=== PATIENT | female | born 1950 | race Caucasian/White ===

== ENCOUNTER 2017-02-23 07:45 | Day surgery (SDC) | payer MEDICARE, BC ==
[2017-02-23] VITALS (12 sets, daily range): BP systolic 85–164; BP diastolic 52–84; PULSE 54–68; RESP 14–21; TEMP 97.1–98.2; O2SAT 95–100; Ht 162.6 cm; Wt 69.9 kg
[~2017-02-23] VITALS: Ht 162.6 cm; Wt 69.9 kg
[~2017-02-23 07:45] MED LIST: ACET-2321 PO; AMLO5TAB2 PO; ASPI-1115 PO; ATOR10TA64 PO; ATOR40TA64 PO; CYCL5TAB PO; GLUC-195 PO; HYDR200T4 PO; LACT1CAP80 PO; LIDOCAINE 1% (10mg/ml) 2ml SDV INJ ONE; LR 1,000 ML IV SCH; MULT-37 PO; NAPR500T3 PO; OMEG1CAP79 PO; OXYC-544 PO; TRAM50TA4 PO; UBID100C10 PO
--- OUTSIDE RECORDS SUMMARY | 2017-02-23 07:49 | XMS REPORT | CCD ---
Author Author BRI GALAN Organization Unknown Address [address] [facility] [place], [place] [id number] Phone 0 Care Team Providers Care Custom Bike Builder Name Role Phone Bhargav RAMÍREZ Attending Physician 0 Vital Signs Unknown or Not Available. Allergies Allergy Code Allergy Type Reaction Status No Known Drug Allergies 0 No known drug allergies Active Procedures Unknown or Not Available. History of Immunizations Unknown or Not Available. Problems Unknown or Not Available. Results Unknown or Not Available. Active Medications Unknown or Not Available. Medications Administered During Visit Unknown or Not Available. Encounters Encounter Diagnosis Diagnosis Code Start Date JOINT PAIN-MULT JTS 13016 05/30/2015 Social History Smoking Status Code Start Date End Date Former smoker [id number] Patient Decision Aids Unknown or Not Available. Discharge Instructions You were admitted to [facility] on 05/30/2015 with a principal diagnosis of JOINT PAIN-MULT JTS. You were discharged from [facility] on 05/30/2015. Should you have any questions prior to discharge, please contact a member of your healthcare team. If you have left the hospital and have any questions, please contact your primary care physician. Chief Complaint and Reason For Visit Chief Complaint Date of Onset RHEUMATOLOGY Function Status Unknown or Not Available. Plan of Care Unknown or Not Available. Referral/Transition of Care Unknown or Not Available.
--- OUTSIDE RECORDS SUMMARY | 2017-02-23 07:49 | XMS REPORT | CCD ---
Author Author BRI GALAN Organization Unknown Address [address] [place], [place] [address] Phone 0 Care Team Providers Care Bacteriologist Soil Name Role Phone HA BLISS Attending Physician 0 JENNIFER PATEL Physician [phone] Vital Signs Unknown or Not Available. Allergies Allergy Code Allergy Type Reaction Status No Known Drug Allergies 0 No known drug allergies Active Procedures Procedure Code Procedure Type Date CHEST [id number] 02/14/2015 History of Immunizations Unknown or Not Available. Problems Unknown or Not Available. Results BASIC METABOLIC - Collect Date/Time: 02/14/2015 09:30 Test Name Code Test Result Test Units Test Ref Range GLUCOSE 82 mg/dL L=70 H=110 BUN 22 mg/dL L=7 H=18 CREATININE 1.10 mg/ dL L=0.60 H=1.30 AGE 64 YEARS GFR 53.0 SODIUM 143 mmol/L L=136 H=145 POTASSIUM 4.1 mmol/ L L=3.5 H=5.1 CHLORIDE 104 mmol/L L=98 H=107 CO2 32 mmol/L L=21 H=32 CALCIUM 9.0 mg/dL L=8.5 H=10.1 CBC W/ DIFF - Collect Date/Time: 02/14/2015 09:30 Test Name Code Test Result Test Units Test Ref Range WBC 4.3 x10^3 L=4.8 H=10.8 RBC 4.65 x10^6 L=4.20 H=5.40 HEMOGLOBIN 14.3 g/ dL L=12.0 H=16.0 HEMATOCRIT 41.7 % L=37.0 H=47.0 MCV 90 fL L=80 H=100 MCH 30.6 pg L=27.0 H=33.0 MCHC 34.2 g/dL L=33.0 H=37.0 RDW 13.1 % L=11.5 H=14.5 PLATELETS 291 x10^3 L=150 H=450 MPV 7.3 fL L=7.8 H=11.0 NEUTROPHILS 59.6 % L=40.0 H=80.0 LYMPHOCYTES 31.2 % L=20.0 H=45.0 MONOCYTES 6.9 % L=0.0 H=10.0 EOSINOPHILS 1.1 % L=0.0 H=5.0 BASOPHILS 1.2 % L=0.0 H=2.0 REFLEX MAN DIFF NO N /A PT/INR - Collect Date/Time: 02/14/2015 09:30 Test Name Code Test Result Test Units Test Ref Range PT 10.4 Secs L=9.6 H=11.2 INR 1.00 L=0.00 H=4.00 Active Medications Unknown or Not Available. Medications Administered During Visit Unknown or Not Available. Encounters Unknown or Not Available. Social History Smoking Status Code Start Date End Date Former smoker [id number] Patient Decision Aids Unknown or Not Available. Discharge Instructions You were admitted to [facility] on 02/14/2015. You were discharged from [facility] on 02/14/2015. Should you have any questions prior to discharge, please contact a member of your healthcare team. If you have left the hospital and have any questions, please contact your primary care physician. Chief Complaint and Reason For Visit Chief Complaint Date of Onset PRE OP LAB XR CHEST EKG Function Status Unknown or Not Available. Plan of Care Unknown or Not Available. Referral/Transition of Care Unknown or Not Available.
--- OUTSIDE RECORDS SUMMARY | 2017-02-23 07:49 | XMS REPORT | CCD ---
Author Author BRI GALAN Organization Unknown Address [address] [facility] [place], [place] [address] Phone 0 Care Team Providers Care Five Roll Refiner Batch Mixer Name Role Phone CHARLES ABARCA W Attending Physician [phone] Vital Signs Unknown or Not Available. Allergies Allergy Code Allergy Type Reaction Status No Known Drug Allergies 0 No known drug allergies Active Procedures Unknown or Not Available. History of Immunizations Unknown or Not Available. Problems Unknown or Not Available. Results LIPID PANEL Test Name Code Test Result Test Units Test Date/Time CHOLESTEROL 134.0000 mg/dL 03/26/2014 14:05 TRIGLYCERIDES 137.0000 mg/dL 03/26/2014 14:05 HDL 56.0000 mg/dL 03/26/2014 14:05 LDL, CALC 51.0000 mg /dL 03/26/2014 14:05 VLDL 27.0000 mg/dL 03/26/2014 14:05 CHOL/HDL RISK 2.4000 RATIO 03/26/2014 14:05 PT FASTING: NO N/A 03/26/2014 14:05 Medications Unknown or Not Available. Medications Administered Unknown or Not Available. Encounters Unknown or Not Available. Social History Smoking Status Code Start Date End Date Former smoker [id number] Patient Decision Aids Unknown or Not Available. Discharge Instructions You were admitted to [facility] on 03/26/2014. You were discharged from [facility] on 03/26/2014. Should you have any questions prior to discharge, please contact a member of your healthcare team. If you have left the hospital and have any questions, please contact your primary care physician. Chief Complaint and Reason For Visit Chief Complaint Date of Onset LAB Function Status Unknown or Not Available. Plan of Care Unknown or Not Available. Referral/Transition of Care Unknown or Not Available.
--- OUTSIDE RECORDS SUMMARY | 2017-02-23 07:49 | XMS REPORT | Continuity of Care Document ---
Demographics Preferred Language Unknown Marital Status Unknown Spiritism Affiliation Unknown Race Unknown Ethnic Group Unknown Author Author [facility] Organization [facility] Address Unknown Phone Unavailable Allergies Medications Problems Procedures Results Encounters ACCT No. Visit Date/Time Discharge Status Pt. Type Provider Facility Loc./Unit Complaint [id number] 12/10/2016 07:43:00 ACT Unknown [id number] 10/15/2016 12:28:00 ACT Unknown [id number] 02/18/2016 11:10:00 ACT Unknown [id number] 11/06/2015 18:09:00 ACT Unknown [id number] 11/06/2015 17:47:00 ACT Unknown [id number] 04/25/2014 08:55:00 ACT Unknown [id number] 04/25/2014 08:54:00 ACT Unknown
--- OUTSIDE RECORDS SUMMARY | 2017-02-23 07:49 | XMS REPORT | CCD ---
Author Author JAMES RUFF Organization Unknown Address [address] [facility] [place], [place] [address] Phone 0 Care Team Providers Care Drapery Hanger Name Role Phone Bhargav RAMÍREZ Attending Physician 0 ANURAG GIBBONS Rounding Physician [phone] Vital Signs Unknown or Not Available. Allergies Allergy Code Allergy Type Reaction Status No Known Drug Allergies 0 No known drug allergies Active Procedures Unknown or Not Available. History of Immunizations Unknown or Not Available. Problems Unknown or Not Available. Results COMP METABOLIC - Collect Date/Time: 01/23/2016 09:35 Test Name Code Test Result Test Units Test Ref Range GLUCOSE 89 mg/dL L=70 H=110 BUN 21 mg/dL L=7 H=18 CREATININE 0.91 mg/ dL L=0.60 H=1.30 AGE 65 YEARS GFR 61.9 SODIUM 143 mmol/L L=136 H=145 POTASSIUM 3.9 mmol/ L L=3.5 H=5.1 CHLORIDE 104 mmol/L L=98 H=107 CO2 31 mmol/L L=21 H=32 CALCIUM 9.4 mg/dL L=8.5 H=10.1 AST 20 U/L L=15 H=37 ALT 32 U/L L=12 H=78 ALKALINE PHOS 93 U/ L L=50 H=136 TOTAL PROTEIN 7.0 g/ dL L=6.4 H=8.2 ALBUMIN 4.2 g/dL L=3.4 H=5.0 TOTAL BILI 0.90 mg/ dL L=0.00 H=1.00 CBC W/ DIFF - Collect Date/Time: 01/23/2016 09:35 Test Name Code Test Result Test Units Test Ref Range WBC 4.5 x10^3 L=4.8 H=10.8 RBC 4.97 x10^6 L=4.20 H=5.40 HEMOGLOBIN 14.6 g/ dL L=12.0 H=16.0 HEMATOCRIT 43.4 % L=37.0 H=47.0 MCV 87 fL L=80 H=100 MCH 29.3 pg L=27.0 H=33.0 MCHC 33.5 g/dL L=33.0 H=37.0 RDW 13.4 % L=11.5 H=14.5 PLATELETS 282 x10^3 L=150 H=450 MPV 7.7 fL L=7.8 H=11.0 NEUTROPHILS 63.2 % L=40.0 H=80.0 LYMPHOCYTES 25.2 % L=20.0 H=45.0 MONOCYTES 6.9 % L=0.0 H=10.0 EOSINOPHILS 4.7 % L=0.0 H=5.0 BASOPHILS 0.0 % L=0.0 H=2.0 REFLEX MAN DIFF NO N /A Active Medications Unknown or Not Available. Medications Administered During Visit Unknown or Not Available. Encounters Encounter Diagnosis Diagnosis Code Start Date Erosive (osteo)arthritis M154 01/23/2016 Social History Smoking Status Code Start Date End Date Former smoker [id number] Patient Decision Aids Unknown or Not Available. Discharge Instructions You were admitted to [facility] on 01/23/2016 09:01 with a principal diagnosis of Erosive (osteo)arthritis You had the following tests done: CBC W / DIFF COMP METABOLIC You were discharged from [facility] on 01/23/2016 09:01 Should you have any questions prior to [...]
--- OUTSIDE RECORDS SUMMARY | 2017-02-23 07:49 | XMS REPORT | CCD ---
Author Author BRI GALAN Organization Unknown Address [address] [facility] [place] [address] Phone 0 Care Team Providers Care Sports Medicine Trainer Name Role Phone JENNIFER PATEL Attending Physician [phone] Vital Signs Unknown or Not Available. Allergies [...] Encounters Encounter Diagnosis Diagnosis Code Start Date PHYSICAL THERAPY NEC V571 03/11/2015 Social History Smoking Status Code Start Date End Date Former smoker [id number] Patient Decision Aids Unknown or Not Available. Discharge Instructions You were admitted to [facility] on 03/11/2015 with a principal diagnosis of PHYSICAL THERAPY NEC. Should you have any questions prior to discharge, please contact a member of your healthcare team. If you have left the hospital and have any questions, please contact your primary care physician. Chief Complaint and Reason For Visit Unknown or Not Available. Function Status Unknown or Not Available. Plan of Care Unknown or Not Available. Referral/Transition of Care Unknown or Not Available.
--- OUTSIDE RECORDS SUMMARY | 2017-02-23 07:49 | XMS REPORT | CCD ---
Author Author JAMES RUFF Organization Unknown Address [address] [facility] [place] [address] Phone 0 Care Team Providers Care Manufacturing Helper Name Role Phone Bhargav RAMÍREZ Attending Physician [...] Diagnosis Code Start Date Erosive (osteo)arthritis M154 09/24/2016 Social History Smoking Status Code Start Date End Date Former smoker [id number] Patient Decision Aids Unknown or Not Available. Discharge Instructions You were admitted to [facility] on 09/24/2016 08:48 with a principal diagnosis of Erosive (osteo)arthritis You were discharged from [facility] on 09/24/2016 08:48 Should you have any questions prior to [...]
--- OUTSIDE RECORDS SUMMARY | 2017-02-23 07:49 | XMS REPORT | CCD ---
Author Author JAMES RUFF Organization Unknown Address [address] [facility] [place] [address] Phone 0 Care Team Providers Care Hot Tamale Man Name Role Phone ROVERTO MERINO Attending Physician 0 Vital Signs Unknown or Not Available. Allergies Allergy Code Allergy Type Reaction Status No Known Drug Allergies 0 No known drug allergies Active Procedures Unknown or Not Available. History of Immunizations Unknown or Not Available. Problems Unknown or Not Available. Results BASIC METABOLIC - Collect Date/Time: 11/29/2016 11:13 Test Name Code Test Result Test Units Test Ref Range GLUCOSE 80 mg/dL L=70 H=110 BUN 20 mg/dL L=7 H=18 CREATININE 0.90 mg/ dL L=0.60 H=1.30 AGE 66 YEARS GFR 62.5 L=60.0 H=120 SODIUM 145 mmol/L L=136 H=145 POTASSIUM 3.9 mmol/ L L=3.5 H=5.1 CHLORIDE 106 mmol/L L=98 H=107 CO2 32 mmol/L L=21 H=32 CALCIUM 9.2 mg/dL L=8.5 H=10.1 CBC W/ DIFF - Collect Date/Time: 11/29/2016 11:13 Test Name Code Test Result Test Units Test Ref Range WBC 5.2 x10^3 L=4.8 H=10.8 RBC 5.16 x10^6 L=4.20 H=5.40 HEMOGLOBIN 14.9 g/ dL L=12.0 H=16.0 HEMATOCRIT 45.6 % L=37.0 H=47.0 MCV 88 fL L=80 H=100 MCH 28.8 pg L=27.0 H=33.0 MCHC 32.6 g/dL L=33.0 H=37.0 RDW 13.2 % L=11.5 H=14.5 PLATELETS 304 x10^3 L=150 H=450 MPV 7.1 fL L=7.8 H=11.0 NEUTROPHILS 59.6 % L=40.0 H=80.0 LYMPHOCYTES 29.5 % L=20.0 H=45.0 MONOCYTES 7.1 % L=0.0 H=10.0 EOSINOPHILS 1.6 % L=0.0 H=5.0 BASOPHILS 2.2 % L=0.0 H=2.0 REFLEX MAN DIFF NO N /A Active Medications Unknown or Not Available. Medications Administered During Visit Unknown or Not Available. Encounters Unknown or Not Available. Social History Smoking Status Code Start Date End Date Former smoker [id number] Patient Decision Aids Unknown or Not Available. Discharge Instructions You were admitted to [facility] on 11/29/2016 11:07 You had the following tests done: BASIC METABOLIC CBC W/ DIFF You were discharged from [facility] on 11/29/2016 11:07 Should you have any questions prior to [...]
--- OUTSIDE RECORDS SUMMARY | 2017-02-23 07:49 | XMS REPORT | CCD ---
Author Author BRI GALAN Organization Unknown Address [address] [facility] [place], [place] [phone] Phone 0 Care Team Providers Care Pre K Special Education Teacher Name Role Phone CHARLES ABARCA W Attending Physician [phone] Vital Signs Unknown or Not Available. Allergies Allergy Code Allergy Type Reaction Status No Known Drug Allergies 0 No known drug allergies Active Procedures Unknown or Not Available. History of Immunizations Unknown or Not Available. Problems Unknown or Not Available. Results C-REACTIVE PROTEIN Test Name Code Test Result Test Units Test Date/Time CRP 2.0000 mg/L 04/09/2014 15:50 URIC ACID Test Name Code Test Result Test Units Test Date/Time URIC ACID 4.7000 mg/ dL 04/09/2014 15:50 Medications Unknown or Not Available. Medications Administered Unknown or Not Available. Encounters Unknown or Not Available. Social History Smoking Status Code Start Date End Date Former smoker [id number] Patient Decision Aids Unknown or Not Available. Discharge Instructions You were admitted to [facility] on 04/09/2014. You were discharged from [facility] on 04/09/2014. Should you have any questions prior to [...]
--- OUTSIDE RECORDS SUMMARY | 2017-02-23 07:49 | XMS REPORT | CCD ---
Author Author BRI GALAN Organization Unknown Address [address] [place], [place] [address] Phone 0 Care Team Providers Care Manager Coding Name Role Phone HA BLISS Attending Physician 0 Vital Signs Unknown or Not Available. Allergies Allergy Code Allergy Type Reaction Status No Known Drug Allergies 0 No known drug allergies Active Procedures Unknown or Not Available. History of Immunizations Unknown or Not Available. Problems Unknown or Not Available. Results COMP METABOLIC - Collect Date/Time: 01/20/2015 16:00 Test Name Code Test Result Test Units Test Ref Range GLUCOSE 92 mg/dL L=70 H=110 BUN 24 mg/dL L=7 H=18 CREATININE 1.10 mg/ dL L=0.60 H=1.30 AGE 64 YEARS GFR 53.0 SODIUM 144 mmol/L L=136 H=145 POTASSIUM 3.9 mmol/ L L=3.5 H=5.1 CHLORIDE 105 mmol/L L=98 H=107 CO2 35 mmol/L L=21 H=32 CALCIUM 9.1 mg/dL L=8.5 H=10.1 AST 25 U/L L=15 H=37 ALT 51 U/L L=12 H=78 ALKALINE PHOS 81 U/ L L=50 H=136 TOTAL PROTEIN 7.3 g/ dL L=6.4 H=8.2 ALBUMIN 4.3 g/dL L=3.4 H=5.0 TOTAL BILI 0.60 mg/ dL L=0.00 H=1.00 LIPID PANEL - Collect Date/Time: 01/20/2015 16:00 Test Name Code Test Result Test Units Test Ref Range CHOLESTEROL 128 mg/ dL L=0 H=200 TRIGLYCERIDES 47 mg/ dL L=30 H=150 HDL 72 mg/dL L=50 H=60 LDL, CALC 47 mg/dL L=0 H=100 VLDL 9 mg/dL L=0 H=40 CHOL/HDL RISK 1.8 RATIO L=0.0 H=4.4 PT FASTING: YES N/A Active Medications Unknown or Not Available. Medications Administered During Visit Unknown or Not Available. Encounters Encounter Diagnosis Diagnosis Code Start Date HYPERTENSION NOS 4019 01/20/2015 Social History Smoking Status Code Start Date End Date Former smoker [id number] Patient Decision Aids Unknown or Not Available. Discharge Instructions You were admitted to [facility] on 01/20/2015 with a principal diagnosis of HYPERTENSION NOS. You were discharged from [facility] on 01/20/2015. Should you have any questions prior to discharge, please contact a member of your healthcare team. If you have left the hospital and have any questions, please contact your primary care physician. Chief Complaint and Reason For Visit Chief Complaint Date of Onset LAB/XRAY Function Status Unknown or Not Available. Plan of Care Unknown or Not Available. Referral/Transition of Care Unknown or Not Available.
[2017-02-23] MEDS ORDERED: FLEET PHOSPHO-SODA 133 ML ENEMA RECTALLY PRN (08:30)
[2017-02-23] MEDS ORDERED: SALINE FLUSH 10ml SYRINGE ONE (09:55)
[2017-02-23] MEDS ORDERED: FENTANYL 100mcg/2ml INJECTION ONE (09:55)
[2017-02-23] MEDS ORDERED: MIDAZOLAM 5mg/5ml INJECTION ONE ×2 (09:55→10:14)
[2017-02-23] MEDS ORDERED: MIDAZOLAM 5mg/5ml INJECTION IV PRN (10:07)
[2017-02-23] MEDS ORDERED: FENTANYL 100mcg/2ml INJECTION IV PRN (10:07)
[2017-02-23] MEDS ORDERED: CLINDAMYCIN 600mg IVPB 50 ML IV ONE (10:30)
--- NOTE | 2017-02-23 15:14 | OPNOTEF ---
DATE OF PROCEDURE: February 23, 2017 PHYSICIAN: Travis Larsen DO PROCEDURE: Colonoscopy. INDICATION FOR PROCEDURE Left lower quadrant pain, left upper quadrant pain and change in stools. ASA CLASSIFICATION: 1 DESCRIPTION OF PROCEDURE Consent was signed and on the chart. Routine monitoring with ECG, continuous oximetry and noninvasive blood pressure was performed throughout the procedure and found to be within normal limits. IV sedation was performed with a total of 9 mg of Versed and 90 mcg of fentanyl. She was also given 600 mg of clindamycin. Prior to the procedure the patient was brought to the endoscopy lab where a brief review of her medical history and physical was performed. The procedure was described to her and she was agreeable to continue. All questions were answered. She was given IV sedation and placed in left lateral decubitus position. A digital rectal exam was normal. The colonoscope was introduced through the anal verge and advanced to the cecum. Upon reaching the cecum careful examination of the mucosa was performed from the cecum through the ascending colon and transverse colon. There were no polyps, masses, lesions or diverticula. She did have sigmoid diverticulosis, otherwise normal. She tolerated the procedure well. There were no complications. IMPRESSION Diverticulosis of the sigmoid colon, otherwise normal. RECOMMENDATION Consider CT of the abdomen if the left upper quadrant pain continues. JAVOND
== END 2017-02-23 11:04 | disposition home or self-care (01) ==
LOC: NSC 07:45
PROVIDERS: ATTEND Internal Medicine
DX: K57.30 Diverticulosis of large intestine without perforation or abscess without bleeding (principal); R19.5 Other fecal abnormalities; R19.7 Diarrhea, unspecified; R10.32 Left lower quadrant pain; R10.12 Left upper quadrant pain; Z87.891 Personal history of nicotine dependence; I10 Essential (primary) hypertension; E78.5 Hyperlipidemia, unspecified; E66.9 Obesity, unspecified; Z68.26 Body mass index [BMI] 26.0-26.9, adult; Z79.1 Long term (current) use of non-steroidal anti-inflammatories (NSAID); Z79.899 Other long term (current) drug therapy
CPT/HCPCS: 45378; A9270; J2250; J3010; J7120